=== PATIENT | male | born 1995 | race Caucasian/White ===

== ENCOUNTER 2022-01-02 03:57 | Emergency (ER) | payer BC, SELFPAY ==
[2022-01-02 04:03] VITALS: BP 149/94; PULSE 80; RESP 18; TEMP 36.2; O2SAT 100
--- NOTE | 2022-01-02 04:12 | ED.GENADULT ---
HPI - General Adult General Chief complaint: Ear Stated complaint: left ear drum is about to rupture Time Seen by Provider: 01/02/22 04:05 Source: patient Limitations: no limitations History of Present Illness HPI narrative: 26-year-old male presented emergency department for evaluation of left ear pain. Patient states that over the last few hours he has had increasing left ear pain that he attributes to a left ear infection. Patient has a significant history of ear infections and ear ruptures. Patient is currently being treated for an upper respiratory infection and is taking Tessalon Perles and is on steroids. Over the last 2 hours she has had increased pressure of the left ear and muffling of his hearing. Patient states he has previously had follow-up with ENT and that he has approximately 20 to 30% hearing loss of the left ear. Patient does have cough but denies any associated shortness of breath. Patient denies any nausea vomiting or diarrhea. Related Data Home Medications Medication Instructions Recorded Confirmed budesonide-formoterol INHALATION 01/02/22 pantoprazole PO 01/02/22 sertraline mg 01/02/22 Allergies Allergy/AdvReac Type Severity Reaction Status Date / Time No Known Allergies Allergy Unverified 01/02/22 04:02 Review of Systems Review of Systems: CONSTITUTIONAL: Denies fever, chills, or sweats. EYES: Denies visual changes, redness, or discharge. ENT: See HPI CARDIOVASCULAR: Denies chest pain, palpitations, or edema. RESPIRATORY: Denies cough or dyspnea. GASTROINTESTINAL: Denies abdominal pain, nausea, vomiting, or diarrhea. GENITOURINARY: Denies dysuria or hematuria. SKIN: Denies rash or itching. MUSCULOSKELETAL: Denies back pain, joint pain, or myalgia. NEUROLOGIC: Denies headache, numbness, or weakness. All systems reviewed & are unremarkable except as noted in HPI and below Exam Narrative: APPEARANCE: Well appearing, no pain, no distress, well-nourished. HEAD: normocephalic, atraumatic. EYES: PERRLA/EOMI, conjunctivae clear. NOSE: Normal no drainage EARS: Normal TM on the right. Bulging TM with purulent fluid behind the left TM. No evidence of rupture. No mastoid tenderness to palpation. THROAT: Pharynx clear, no exudate. NECK: Supple. No adenopathy, no masses. RESPIRATORY: Airway patent, respirations nonlabored. Clear to auscultation bilaterally, no rales, rhonchi, wheezing. CARDIOVASCULAR: Regular rate and rhythm without murmurs rubs or gallops. ABDOMINAL: Soft, nontender, nondistended, normal bowel sounds MUSCULOSKELETAL: Moves all extremities. Strength/ROM intact, No edema, No calf tenderness. NEURO: Alert. Cranial nerves II through XII intact. SKIN: Warm, dry. Normal Color Course Course Emergency Course: Patient was encouraged to have close follow-up with ENT. Patient was also encouraged to follow-up with his primary care physician. All questions and concerns were addressed. Vital Signs Vital signs: Vital Signs Temperature 97.1 F L 01/02/22 04:03 Pulse Rate 80 01/02/22 04:03 Respiratory Rate 18 01/02/22 04:03 Blood Pressure 149/94 H 01/02/22 04:03 Pulse Oximetry 100 01/02/22 04:03 Temperature 97.1 F L 01/02/22 04:03 Pulse Rate 84 01/02/22 05:14 Respiratory Rate 18 01/02/22 05:14 Blood Pressure 125/85 01/02/22 05:14 Pulse Oximetry 96 01/02/22 05:14 Medical Decision Making Vital Signs Vital Signs: Vital Signs Temperature 97.1 F L 01/02/22 04:03 Pulse Rate 80 01/02/22 04:03 Respiratory Rate 18 01/02/22 04:03 Blood Pressure 149/94 H 01/02/22 04:03 Pulse Oximetry 100 01/02/22 04:03 Temperature 97.1 F L 01/02/22 04:03 Pulse Rate 84 01/02/22 05:14 Respiratory Rate 18 01/02/22 05:14 Blood Pressure 125/85 01/02/22 05:14 Pulse Oximetry 96 01/02/22 05:14 Discharge Plan Discharge Clinical Impression: Otitis media Patient Disposition: Home, Self-Care Condition: Stable Instructions: Antibioti
[2022-01-02] MEDS: AMOXICILLIN/CLAVULANATE K 875-125 MG TAB 1 TABLET PO (04:28)
[2022-01-02] MEDS: HYDROcodone/acetaminophen (*CRX) 5-325 MG TABLET 1 TAB PO (04:28)
[2022-01-02] MEDS: KETOROLAC 30 MG/ML VIAL (*BKC) IM (04:29)
[2022-01-02 05:14] VITALS: BP 125/85; PULSE 84; RESP 18; O2SAT 96
== END 2022-01-02 05:15 | disposition home or self-care (01) ==
PROVIDERS: Emergency Provider Emergency Medicine
DX: H66.92 Otitis media, unspecified, left ear (principal)
CPT/HCPCS: 96372; 99283; A9270; J1885